=== PATIENT | male | born 1990 | race Caucasian/White ===

== ENCOUNTER 2017-08-25 13:03 | Observation (INO) | payer SELFPAY ==
[~2017-08-25] VITALS: Ht 177.8 cm; Wt 70.0 kg
[2017-08-25 13:12] VITALS: BP 133/90; PULSE 118; RESP 20; TEMP 97.3; O2SAT 98
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
[2017-08-25] MEDS ORDERED: SODIUM CHLORIDE 0.9% FLUSH 10 ML FLUSH IVF PRN (13:30)
[2017-08-25] MEDS ORDERED: LORazepam 2 MG/ML VIAL IM ONE ×2 (13:30→14:30)
[2017-08-25] MEDS ORDERED: SODIUM CHLOR 0.9% 1000 ML INJ 1,000 ML IV ONE ×2 (13:30→16:45)
[2017-08-25] MEDS ORDERED: HALOPERIDOL LACTATE 5 MG/ML AMP IM ONE (13:30)
[2017-08-25] MEDS ORDERED: diphenhydrAMINE HCL 50 MG/ML VIAL IV PUSH ONE (13:30)
[2017-08-25] MEDS ORDERED: diphenhydrAMINE HCL 50 MG/ML VIAL IM ONE (13:45)
[2017-08-25 14:07] LABS: AUTOMATED NEUTROPHIL # 7.7 TH/MM3 (1.8-7.7); BASOPHIL # 0.1 TH/MM3 (0-0.2); BASOPHIL % 0.9 % (0.0-2.0); EOSINOPHIL # 0.3 TH/MM3 (0-0.4); EOSINOPHIL % 2.7 % (0.0-4.0); HEMATOCRIT 44.3 % (39.0-51.0); HEMOGLOBIN 15.3 GM/DL (13.0-17.0); LYMPH % 22.5 % (9.0-44.0); LYMPHOCYTE # 2.6 TH/MM3 (1.0-4.8); MEAN CELL VOLUME 88.6 FL (80.0-100.0); MEAN CORPUSCULAR HEMOGLOBIN 30.6 PG (27.0-34.0); MEAN CORPUSCULAR HGB CONC 34.5 % (32.0-36.0); MEAN PLATELET VOLUME 9.2 FL (7.0-11.0); MONO % 7.8 % (0.0-8.0); MONOCYTE # 0.9 TH/MM3 (0-0.9); NEUT % 66.1 % (16.0-70.0); PLATELET COUNT 246 TH/MM3 (150-450); RED CELL DISTRIBUTION WIDTH 13.4 % (11.6-17.2); WHITE BLOOD COUNT 11.6 TH/MM3 (4.0-11.0)
[2017-08-25 14:19] LABS: ALT (GPT) 49 U/L (12-78)
[2017-08-25 14:29] LABS: ALKALINE PHOSPHATASE 68 U/L (45-117); TOTAL BILIRUBIN ADULT 1.1 MG/DL (0.2-1.0); TOTAL PROTEIN 7.9 GM/DL (6.4-8.2)
[2017-08-25 14:33] LABS: ALBUMIN 4.6 GM/DL (3.4-5.0); AST (GOT) 67 U/L (15-37); BICARBONATE 26.4 MEQ/L (21.0-32.0); BLOOD UREA NITROGEN 33 MG/DL (7-18); CHLORIDE 103 MEQ/L (98-107); CREATININE 1.49 MG/DL (0.60-1.30); GLOMERULAR FILTRATION RATE 41 ML/MIN (>89); GLUCOSE,RANDOM 81 MG/DL (74-106); SODIUM (NA) 139 MEQ/L (136-145)
--- NOTE | 2017-08-25 17:05 | PD ---
Data Data Last Documented VS Vital Signs Date Time Temp Pulse Resp B/P (MAP) Pulse Ox O2 Delivery O2 Flow Rate FiO2 08/25/17 13:50 Room Air 08/25/17 13:12 97.3 118 20 133/90 (104) 98 Orders Orders Complete Blood Count With Diff (08/25/17 13:17) Comprehensive Metabolic Panel (08/25/17 13:17) Thyroid Stimulating Hormone (08/25/17 13:17) Urinalysis - C+S If Indicated (08/25/17 13:17) Electrocardiogram (08/25/17 13:17) Iv Access Insert/Monitor (08/25/17 13:17) Psych Screen (08/25/17 13:17) Sodium Chloride 0.9% Flush (Ns Flush) (08/25/17 13:30) Haloperidol Inj (Haldol Inj) (08/25/17 13:30) Lorazepam Inj (Ativan Inj) (08/25/17 13:30) Restraints Violent (08/25/17 13:17) Drug Screen, Random Urine (08/25/17 13:17) Alcohol (Ethanol) (08/25/17 13:17) Sodium Chlor 0.9% 1000 Ml Inj (Ns 1000 M (08/25/17 13:30) Diphenhydramine Inj (Benadryl Inj) (08/25/17 13:30) Diphenhydramine Inj (Benadryl Inj) (08/25/17 13:45) Lorazepam Inj (Ativan Inj) (08/25/17 14:30) Sodium Chlor 0.9% 1000 Ml Inj (Ns 1000 M (08/25/17 16:45) Labs Laboratory Tests Test 08/25/17 13:45 White Blood Count 11.6 TH/MM3 Red Blood Count 5.00 MIL/MM3 Hemoglobin 15.3 GM/DL Hematocrit 44.3 % Mean Corpuscular Volume 88.6 FL Mean Corpuscular Hemoglobin 30.6 PG Mean Corpuscular Hemoglobin Concent 34.5 % Red Cell Distribution Width 13.4 % Platelet Count 246 TH/MM3 Mean Platelet Volume 9.2 FL Neutrophils (%) (Auto) 66.1 % Lymphocytes (%) (Auto) 22.5 % Monocytes (%) (Auto) 7.8 % Eosinophils (%) (Auto) 2.7 % Basophils (%) (Auto) 0.9 % Neutrophils # (Auto) 7.7 TH/MM3 Lymphocytes # (Auto) 2.6 TH/MM3 Monocytes # (Auto) 0.9 TH/MM3 Eosinophils # (Auto) 0.3 TH/MM3 Basophils # (Auto) 0.1 TH/MM3 CBC Comment DIFF FINAL Differential Comment Blood Urea Nitrogen 33 MG/DL Creatinine 1.49 MG/DL Random Glucose 81 MG/DL Total Protein 7.9 GM/DL Albumin 4.6 GM/DL Calcium Level 10.0 MG/DL Alkaline Phosphatase 68 U/L Aspartate Amino Transf (AST/SGOT) 67 U/L Alanine Aminotransferase (ALT/SGPT) 49 U/L Total Bilirubin 1.1 MG/DL Sodium Level 139 MEQ/L Potassium Level 4.4 MEQ/L Chloride Level 103 MEQ/L Carbon Dioxide Level 26.4 MEQ/L Anion Gap 10 MEQ/L Estimat Glomerular Filtration Rate 41 ML/MIN Thyroid Stimulating Hormone 3rd Gen 1.240 uIU/ML Ethyl Alcohol Level LESS THAN 3 MG/DL MDM Supervised Visit with LUISITO: Yes Narrative Course I, Dr. Cox, have reviewed the advance practice practitioner's documentation and am in agreement, met with the patient face to face, made the diagnosis, and the medical decision making was done by me. *My assessment and Findings: Patient presents very combative with severe altered mental status. Reportedly ingested flocca. He presents under police Kwong act. He was found acting psychotic and running into traffic without pants. Workup is done. He is required many doses of Ativan to calm down. He required restraints for his safety. He will be a 23 hour observation for altered mental status Patient Instructions: General Instructions Scripts Unable to Obtain Active Prescriptions or Reported Meds Condition: Manas Lazar MD Aug 25, 2017 17:05
[2017-08-25] MEDS ORDERED: ACETAMINOPHEN 325 MG TAB PO PRN (17:45)
[2017-08-25] MEDS ORDERED: MAGNESIUM HYDROXIDE SUSP 30 ML CUP PO PRN (17:45)
[2017-08-25] MEDS ORDERED: ONDANSETRON HCL 4 MG/2 ML VIAL IVP PRN (17:45)
[2017-08-25] MEDS ORDERED: SENNOSIDES 8.6 MG TAB PO PRN (17:45)
[2017-08-25] MEDS ORDERED: LACTULOSE SYRUP 20 GM/30 ML CUP PO PRN (17:45)
[2017-08-25] MEDS ORDERED: SODIUM CHLORIDE 0.9% FLUSH 10 ML FLUSH IV FLUSH PRN (17:45)
[2017-08-25] MEDS ORDERED: BISACODYL 10 MG SUPP RECTAL PRN (17:45)
[2017-08-25] MEDS ORDERED: NALOXONE HCL 0.4 MG/ML AMP IV PUSH PRN (17:45)
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
[2017-08-25] MEDS ORDERED: FLUMAZENIL 0.5 MG/5 ML VIAL IV PUSH PRN (18:00)
[2017-08-25] MEDS ORDERED: LORazepam 2 MG TAB PO PRN (18:00)
[2017-08-25] MEDS ORDERED: LORazepam 2 MG/ML VIAL IV PUSH PRN ×4 (18:00)
[2017-08-25] MEDS ORDERED: LORazepam 1 MG TAB PO PRN (18:00)
[2017-08-25 18:27] VITALS: BP 129/90; PULSE 56; RESP 15; O2SAT 100
[2017-08-25 21:00] VITALS: BP 139/86; PULSE 53; RESP 19; TEMP 98.8; O2SAT 98
[2017-08-25] MEDS: DOCUSATE SODIUM 50 MG/SENNA 8.6 MG TAB PO SCH (21:00)
[2017-08-26] VITALS (8 sets, daily range): BP systolic 105–149; BP diastolic 67–93; PULSE 51–95; RESP 16–22; TEMP 97.7–98.3; O2SAT 95–100
[2017-08-26] MEDS: SODIUM CHLOR 0.9% 1000 ML INJ 1,000 ML IV SCH ×3 (02:00→18:00)
[2017-08-26 04:21] LABS: AUTOMATED NEUTROPHIL # 5.6 TH/MM3 (1.8-7.7); BASOPHIL # 0.1 TH/MM3 (0-0.2); BASOPHIL % 0.7 % (0.0-2.0); EOSINOPHIL # 0.2 TH/MM3 (0-0.4); EOSINOPHIL % 2.5 % (0.0-4.0); HEMATOCRIT 45.4 % (39.0-51.0); HEMOGLOBIN 15.4 GM/DL (13.0-17.0); LYMPH % 18.9 % (9.0-44.0); LYMPHOCYTE # 1.6 TH/MM3 (1.0-4.8); MEAN CELL VOLUME 90.6 FL (80.0-100.0); MEAN CORPUSCULAR HEMOGLOBIN 30.8 PG (27.0-34.0); MEAN PLATELET VOLUME 9.1 FL (7.0-11.0); MONO % 10.7 % (0.0-8.0); MONOCYTE # 0.9 TH/MM3 (0-0.9); NEUT % 67.2 % (16.0-70.0); PLATELET COUNT 199 TH/MM3 (150-450); RED BLOOD COUNT 5.01 MIL/MM3 (4.50-5.90); WHITE BLOOD COUNT 8.3 TH/MM3 (4.0-11.0)
[2017-08-26 04:42] LABS: ALBUMIN 3.9 GM/DL (3.4-5.0); ALKALINE PHOSPHATASE 64 U/L (45-117); ALT (GPT) 41 U/L (12-78); AST (GOT) 52 U/L (15-37); BICARBONATE 26.1 MEQ/L (21.0-32.0); BLOOD UREA NITROGEN 31 MG/DL (7-18); CALCIUM 8.8 MG/DL (8.5-10.1); CHLORIDE 105 MEQ/L (98-107); CREATININE 1.17 MG/DL (0.60-1.30); GLOMERULAR FILTRATION RATE 54 ML/MIN (>89); GLUCOSE,RANDOM 82 MG/DL (74-106); SODIUM (NA) 141 MEQ/L (136-145); TOTAL BILIRUBIN ADULT 1.8 MG/DL (0.2-1.0)
[2017-08-26] MEDS: DOCUSATE SODIUM 50 MG/SENNA 8.6 MG TAB PO SCH ×2 (09:00→21:11)
--- NOTE | 2017-08-26 09:57 | HHI.PR ---
Subjective Remarks Follow up on patient with encephalopathy secondary to Flakka use. Patient seen and examined. Patient was yelling earlier in his room, cussing out the nurses and broke out of his restraints. He was given 2 mg of Ativan IV. Patient is now sedated. He does mumble incoherently in response to some questions. He is unable to provide me with any meaningful history or responses to any of my questioning. He is satting 98% on room air. Patient has been seen by psychiatry who has agreed to inpatient psychiatric admission once patient is medically stable. Objective Vitals Vital Signs Date Time Temp Pulse Resp B/P (MAP) Pulse Ox O2 Delivery O2 Flow Rate FiO2 08/26/17 09:16 84 20 133/85 (101) 98 08/26/17 06:36 59 22 133/77 (95) 99 08/26/17 01:45 97.9 51 18 136/93 (107) 98 08/25/17 21:00 98.8 53 19 139/86 (103) 98 08/25/17 18:45 08/25/17 18:27 56 15 129/90 (103) 100 Room Air 08/25/17 13:50 Room Air 08/25/17 13:12 97.3 118 20 133/90 (104) 98 Result Diagram: 08/26/17 0333 08/26/17 0333 Objective Remarks GENERAL: This is a young well-nourished, well-developed unkempt male patient, INAD. In 4 point restraints, s/p 2mg IV Ativan. Will not follow commands. Will not open his eyes. Responds to tactile stimulus by mumbling incoherently. SKIN: No rashes, ecchymoses or lesions. Warm and dry. HEAD: Atraumatic. Normocephalic. No temporal or scalp tenderness. EYES: Pupils equal round and reactive. No scleral icterus. Bilateral conjunctiva injected. ENT: Nose without bleeding or purulent drainage. Airway patent. Dry mucus membranes. NECK: Trachea midline. No lymphadenopathy. CARDIOVASCULAR: Regular rate and rhythm without murmurs, gallops, or rubs. RESPIRATORY: Clear to auscultation. Breath sounds equal bilaterally. No wheezes , rales, or rhonchi. GASTROINTESTINAL: Abdomen soft, non-tender, nondistended. No hepato-splenomegaly , or palpable masses. No guarding. +BS. MUSCULOSKELETAL: Extremities without clubbing, cyanosis, or edema. No calf tenderness. NEUROLOGICAL: Responds to tactile stimuli with incoherent mumbling. Does not follow commands. Unable to assess cranial nerves. Able to move all extremities spontaneously. PSYCHIATRIC: Judgment and insight poor. Procedures None Medications and IVs Current Medications Medications (Trade) Dose Ordered Sig/Kennedy Route Start Time Stop Time Status Last Admin (NS Flush) 2 ml UNSCH PRN IVF 08/25/17 13:30 Sodium Chloride 1,000 ml @ 125 mls/hr Q8H IV 08/25/17 18:00 (NS Flush) 2 ml UNSCH PRN IV FLUSH 08/25/17 17:45 (Tylenol) 650 mg Q4H PRN PO 08/25/17 17:45 (Zofran Inj) 4 mg Q6H PRN IVP 08/25/17 17:45 (Narcan Inj) 0.4 mg UNSCH PRN IV PUSH 08/25/17 17:45 (Sharon-Colace) 1 tab BID PO 08/25/17 21:00 (Milk Of Magnesia Liq) 30 ml Q12H PRN PO 08/25/17 17:45 (Senokot) 17.2 mg Q12H PRN PO 08/25/17 17:45 (Dulcolax Supp) 10 mg DAILY PRN RECTAL 08/25/17 17:45 (Lactulose Liq) 30 ml DAILY PRN PO 08/25/17 17:45 (Romazicon Inj) 0.2 mg Q1M PRN IV PUSH 08/25/17 18:00 (Ativan) 1 mg Q4H PRN PO 08/25/17 18:00 (Ativan Inj) 1 mg Q4H PRN IV PUSH 08/25/17 18:00 (Ativan) 2 mg Q2H PRN PO 08/25/17 18:00 (Ativan Inj) 2 mg Q2H PRN IV PUSH 08/25/17 18:00 08/26/17 09:11 (Ativan Inj) 2 mg Q1H PRN IV PUSH 08/25/17 18:00 (Ativan Inj) 2 mg Q15M PRN IV PUSH 08/25/17 18:00 A/P Assessment and Plan AMS/Acute toxic metabolic encephalopathy Acute psychosis secondary to drug use, under Kwong Act Reportedly, patient on [facility] Psychiatry following, appreciate assistance. Started on scheduled Haldol. Psych to reassess patient to see if he meets inpatient psych criteria. -follow up on UDS once patient able to give urine specimen -patient got up and urinated in urinal this morning, refused to give sample. -CIWA protocol -Continue on IVF -Supplemental oxygen as needed to maintain O2 sats greater than 92% Leukocytosis, suspect reactive, secondary to drug use, resolved Patient is afebrile -Continue to monitor CBC as indicated TAYLOR secondary to poor oral intake/dehydration, improving No baseline labs for comparison Creatinine 1.49/GFR 41/BUN 33 -Continue IVF hydration -avoid nephrotoxic agents -continue to monitor renal function. Repeat CMP in am. Rhabdomyolysis, mild CK 1474 -repeat stat CK to follow trend -continue on IVF Hyperbilirubinemia Transaminitis, mild, suspect secondary to drug use LFTs trending down however her bilirubin has worsened from 1.1-1.8 Unable to obtain reliable history from patient -avoid hepatotoxic agents -obtain liver US -hepatitis profile ordered -repeat CMP in am DVT prophylaxis -Early ambulation -Bilateral SCD/MARIANELA hose Discharge Planning Not ready discharge. Discharge pending Psychiatry reassessment, CK trend. Annmarie Palomares Aug 26, 2017 09:57
--- NOTE | 2017-08-26 10:44 | RADRPT ---
EXAM DATE/TIME: 08/26/2017 10:02 [place] COMPARISON: No previous studies available for comparison. INDICATIONS : Increased lab values. MEDICAL HISTORY : Acute psychosis secondary to drug use. SURGICAL HISTORY : ENCOUNTER: Initial ACUITY: 1 day PAIN SCORE: Nonresponsive. LOCATION: Abdomen. MEASUREMENTS: LIVER: 13.9 cm length COMMON DUCT: 4 mm RIGHT KIDNEY: 10.8 x 5.1 x 6.0 cm SPLEEN: 9.1 cm length FINDINGS: Trace amount of free fluid along the inferior margin of the liver. LIVER: Homogeneous echotexture without focal lesion or ductal dilatation. COMMON DUCT: No intraluminal mass or stone visualized. GALLBLADDER: Contains no stones, demonstrates no wall thickening or pericholecystic fluid. PANCREAS: The visualized portions are within normal limits. RIGHT KIDNEY: No hydronephrosis, stone or mass. SPLEEN: No focal lesion. CONCLUSION: 1. Trace amount of ascites. 2. Otherwise negative abdominal sonogram. Ryan Tovar MD on August 26, 2017 at 10:41 Board Certified Radiologist. This report was verified electronically.
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
[2017-08-26 18:00] LABS: BILIRUBIN, URINE NEG (NEG); BLOOD, URINE NEG (NEG); GLUCOSE,URINE 300 mg/dL (NEG); KETONE, URINE 10 mg/dL (NEG); NITRITE,URINE NEG (NEG); PH, URINE 5.5 (5.0-8.5); URINE COLOR YELLOW (YELLW/STRAW); URINE LEUKOCYTE ESTERASE NEG (NEG)
[2017-08-26] MEDS: HALOPERIDOL 5 MG TAB PO SCH (19:42)
[2017-08-27] MEDS: SODIUM CHLOR 0.9% 1000 ML INJ 1,000 ML IV SCH (02:00)
[2017-08-27 04:07] VITALS: BP 124/76; PULSE 71; RESP 18; TEMP 98; O2SAT 98
[2017-08-27 07:10] VITALS: BP 133/83; PULSE 92; RESP 20; TEMP 98; O2SAT 97
[2017-08-27 07:35] VITALS: O2SAT 100
[2017-08-27] MEDS: HALOPERIDOL 5 MG TAB PO SCH (09:00)
[2017-08-27] MEDS: DOCUSATE SODIUM 50 MG/SENNA 8.6 MG TAB PO SCH (09:00)
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
== END 2017-08-27 10:37 | disposition home or self-care (01) ==
LOC: NEPD 13:03 → EDBD 17:46 → NEDA 17:46 → NEPFCDU 18:53
PROVIDERS: ADMIT Hospitalist; ATTEND Hospitalist
DX: F19.959 Other psychoactive substance use, unspecified with psychoactive substance-induced psychotic disorder, unspecified (principal); G92 Toxic encephalopathy; D72.829 Elevated white blood cell count, unspecified; E86.0 Dehydration; N17.9 Acute kidney failure, unspecified; R74.0 Nonspecific elevation of levels of transaminase and lactic acid dehydrogenase [LDH]; M62.82 Rhabdomyolysis; R17 Unspecified jaundice; F17.200 Nicotine dependence, unspecified, uncomplicated; Z78.1 Physical restraint status
CPT/HCPCS: 76705; 80053; 80074; 80307; 81001; 82550; 82552; 84443; 85025; J1200; J1630; J2060; J7030; 96361; 96372; 96374; G0378